=== PATIENT | female | born 1970 | race African-American/Black ===

== ENCOUNTER 2024-09-13 11:23 | Outpatient (CLI) | payer BC | END 2024-09-13 11:24 | disposition home or self-care (01) | LOC: CSHDTY/OP 11:23 | PROVIDERS: ATTEND Nurse Practitioner Family | DX: E66.01 Morbid (severe) obesity due to excess calories (principal); Z68.42 Body mass index [BMI] 45.0-49.9, adult; R73.03 Prediabetes | CPT/HCPCS: 97802 ==

== ENCOUNTER 2024-11-03 10:52 | Outpatient (CLI) | payer BC | END 2024-11-03 10:53 | disposition home or self-care (01) | LOC: CSHDTY/OP 10:52 | PROVIDERS: ATTEND Nurse Practitioner Family | DX: E66.01 Morbid (severe) obesity due to excess calories (principal); Z68.42 Body mass index [BMI] 45.0-49.9, adult; R73.03 Prediabetes | CPT/HCPCS: 97802 ==